=== PATIENT | male | born 1970 | race Caucasian/White ===

== ENCOUNTER 2022-05-21 09:21 | Outpatient (CLI) | payer SELFPAY ==
[2022-05-21 14:19] LABS: Albumin* 4.3 g/dL (3.3-5.0); Chloride* 105 mmol/L (96-114)
[2022-05-21 14:20] LABS: Potassium* 4.6 mmol/L (3.6-5.1); Sodium* 141 mmol/L (135-149)
[2022-05-21 14:22] LABS: Alkaline Phosphatase* 72 U/L (40-150); Aspartate Amino Transferase* 28 U/L (12-35); Bilirubin Total* 0.5 mg/dL (0.1-1.5); Blood Urea Nitrogen* 24 mg/dL (7-30); Carbon Dioxide* 29 mmol/L (20-32); Cholesterol* 141 mg/dL (90-199); Creatinine* 0.9 mg/dL (0.5-1.5); Estimated Glomerular Filt Rate 103 ml/min; Glucose* 92 mg/dL (60-115); Triglycerides* 87 mg/dL (40-149)
[2022-05-21 14:23] LABS: Alanine Aminotransferase* 26 U/L (4-50); Calcium* 8.8 mg/dL (8.4-10.6); HDL Cholesterol* 35 mg/dL (>=40); LDL Cholesterol Calculated 89 mg/dL (<100)
[2022-05-21 15:45] LABS: PSA Screen* 0.46 ng/mL (0.10-4.00)
[2022-05-24 04:14] LABS: Sex Hormone Binding Globulin 44 nmol/L (19-76); Testosterone, Adult Male 481 ng/dL (300-890); Testosterone, Free Calculation 77 pg/mL (47-244); Testosterone, Percentage Free 1.6 % (1.6-2.9)
== END 2022-05-21 09:22 | disposition home or self-care (01) ==
PROVIDERS: PCP Family Medicine; Visit Provider Family Medicine
DX: Z00.00 Encounter for general adult medical examination without abnormal findings (principal); E78.00 Pure hypercholesterolemia, unspecified; N52.9 Male erectile dysfunction, unspecified; Z12.5 Encounter for screening for malignant neoplasm of prostate
CPT/HCPCS: 80053; 80061; 84153; 84270; 84402; 84403

== ENCOUNTER 2023-11-17 08:49 | Outpatient (CLI) | payer BC, SELFPAY | END 2023-11-17 08:50 | disposition home or self-care (01) | PROVIDERS: PCP Family Medicine; Referring Provider Family Medicine; Visit Provider Family Medicine | DX: Z00.00 Encounter for general adult medical examination without abnormal findings (principal); E78.00 Pure hypercholesterolemia, unspecified; N52.9 Male erectile dysfunction, unspecified; Z12.5 Encounter for screening for malignant neoplasm of prostate; Z13.1 Encounter for screening for diabetes mellitus | CPT/HCPCS: 80053; 80061; 84270; 84402; 84403; G0103 ==